=== PATIENT | male | born 1970 | race Caucasian/White ===

== ENCOUNTER 2019-08-05 19:28 | Emergency (ER) | payer MEDICAID ==
[2019-08-05] MEDS ORDERED: DIPH/PERTUSS(ACELL)/TETANUS VAC/PF 0.5 ML SYR (>=10YO) IM ONE ×2 (19:51→22:00)
--- NOTE | 2019-08-05 19:53 | ER Document Report ---
ED Medical Screen (RME) - General Chief Complaint: Laceration Stated Complaint: LACERATION Time Seen by Provider: 08/05/19 19:44 Mode of Arrival: Ambulatory Information source: Patient Notes: 48-year-old male presented to ED for: Laceration to his right hand. It is about 2 cm long. He states he caught a tube of 2 with his hand cut and the hand. He states he does not know if there was a staple in the tibia for or if it was that he preferred septic cutting. He is alert oriented respirations regular and unlabored speaking in full sentences. He states he does smoke about 13 cigarettes a day does not drink alcohol and does not use any illicit drugs. He does have high blood pressure and it is elevated at this time. He is alert oriented respirations regular nonlabored speaking in full sentences. He will be given a tetanus shot in the triage. He states he cut this at about 2 PM today I have greeted and performed a rapid initial assessment of this patient. A comprehensive ED assessment and evaluation of the patient, analysis of test results and completion of medical decision making process will be conducted by an additional ED providers. - Related Data Allergies/Adverse Reactions: No Known Allergies Allergy (Verified 08/05/19 19:41) Home Medications: ibuprofen Physical Exam - Vital signs Vitals: Temp 98.6 F 08/05/19 19:34 Course - Vital Signs Vital signs: Temp Pulse Resp BP Pulse Ox 98.6 F 87 16 176/103 H 98 08/05/19 19:39 08/05/19 19:39 08/05/19 19:39 08/05/19 19:39 08/05/19 19:39
[2019-08-05] MEDS ORDERED: LIDOCAINE 1% INJ (10 MG/ML) 10 ML MDV INJ ONE (20:27)
--- NOTE | 2019-08-05 20:29 | ER Document Report ---
ED General - General Chief Complaint: Laceration Stated Complaint: LACERATION Time Seen by Provider: 08/05/19 19:44 Mode of Arrival: Ambulatory Notes: Patient is a 48-year-old white male with no reported past medical history presents to the emergency department with a chief complaint of laceration to the right palmar thumb that occurred around 2 PM today. The patient states that it was hit with a 2 x 4 causing a laceration. He is unsure if there was any sharp object on the 2 x 4 that caused a laceration. He states he is unsure of his last tetanus. Denies any numbness, tingling, weakness or uncontrollable ble eding. - Related Data Allergies/Adverse Reactions: No Known Allergies Allergy (Verified 08/05/19 19:41) Home Medications: ibuprofen Past Medical History - General Information source: Patient - Social History Smoking Status: Current Every Day Smoker Family History: None Patient has homicidal ideation: No - Past Medical History Cardiac Medical History: Reports: Hx Hypertension - no meds currently Past Surgical History: Reports: Hx Orthopedic Surgery - Rrotator cuff, L knee Review of Systems - Review of Systems Skin: Other - Laceration -: Yes All other systems reviewed and negative Physical Exam - Vital signs Vitals: Temp 98.6 F 08/05/19 19:34 - General General appearance: Appears well, Alert In distress: None - Respiratory Respiratory status: No respiratory distress Chest status: Nontender Breath sounds: Normal Chest palpation: Normal - Cardiovascular Rhythm: Regular Heart sounds: Normal auscultation - Extremities General upper extremity: Other - Full range of motion of the right thumb with and without resistance. Good capillary refill distal to the injury. - Neurological Neuro grossly intact: Yes Cognition: Normal Orientation: AAOx4 - Psychological Associated symptoms: Normal affect, Normal mood - Skin Skin Color: Other - 2 cm laceration horizontal in orientation to the palmar surface of the proximal right thumb. Slightly gaping but wound edges approximate. No uncontrollable bleeding, or foreign body visualized. Course - Re-evaluation Re-evalutation: 08/05/19 22:10 Patient's tetanus was updated. Laceration well approximated. Dressing was applied and the thumb was corin taped to the index finger for immobilization purposes. He will follow-up in 48 hours for wound recheck and reevaluation. Started on Keflex here. He reports copious irrigation immediately after injury and application of Betadine. Was clean appearing here. Neurovascular intact status post. Counseled him regarding the importance of outpatient follow-up and advised he return here any ER immediately with any new, persistent or worsening symptoms. He verbalized understood and agreed. - Vital Signs Vital signs: Temp Pulse Resp BP Pulse Ox 98.6 F 87 16 176/103 H 98 08/05/19 19:39 08/05/19 19:39 08/05/19 19:39 08/05/19 19:39 08/05/19 19:39 Procedures - Laceration/Wound Repair Right Thumb Time completed: 22:08 Wound length (cm): 2 Wound's Depth, Shape: Superficial, Linear Laceration pre-procedure: Sterile PPE donned, Betadine prep applied, Sterile drapes applied Anesthetic type: 1% Lidocaine Volume Anesthetic (mLs): 8 Wound explored: Clean Irrigated w/ Saline (mLs): 100 Wound Repaired With: Sutures Suture Size/Type: 4:0, Prolene Number of Sutures: 3 Layer Closure?: No Post-procedure wound care: Sterile dressing applied, Other - Fingers corin taped together Post-procedure NV exam normal: Yes Complications: No Discharge - Discharge Clinical Impression: Finger laceration Qualifiers: Encounter type: initial encounter Finger: thumb Damage to nail status: without damage Foreign body presence: without foreign body Laterality: right Qualified Code(s): S61.011A - Laceration without foreign body of right thumb without damage to nail, initial encounter Condition: Stable Disposition: HOME, SELF-CARE Instructions: Laceration Care ([facility]) Additional Instructions: Follow-up with your regular doctor in 2 to 3 days for reevaluation. Return here or any ER immediately with any new, persistent or worsening symptoms. Suture move in approximately 7 to 10 days. Prescriptions: Cephalexin Monohydrate [Keflex 500 mg Capsule] 500 mg PO BID 10 Days #20 capsule
[2019-08-05] MEDS ORDERED: LIDOCAINE 1% INJ-PF (10 MG/ML) 30 ML SDV INJ ONE (21:17)
[2019-08-05] MEDS ORDERED: CEPHALEXIN 500 MG CAPSULE PO ONE (22:11)
[2019-08-05 22:26] VITALS: BP 170/98
== END 2019-08-05 22:30 | disposition home or self-care (01) ==
LOC: ER 19:28
DX: S61.011A Laceration without foreign body of right thumb without damage to nail, initial encounter (principal); W22.8XXA Striking against or struck by other objects, initial encounter; Z23 Encounter for immunization; F17.210 Nicotine dependence, cigarettes, uncomplicated; I10 Essential (primary) hypertension; Z79.1 Long term (current) use of non-steroidal anti-inflammatories (NSAID)
CPT/HCPCS: 99282; 90471; 90715; 12001; J3490

== ENCOUNTER 2020-01-22 13:38 | Emergency (ER) | payer MEDICAID ==
[2020-01-22 14:57] VITALS: BP 180/107
[2020-01-22] MEDS ORDERED: KETOROLAC TROMETHAMINE 60 MG/2 ML SDV IM ONE (15:58)
--- NOTE | 2020-01-22 16:02 | ER Document Report ---
ED General - General Chief Complaint: Knee Pain Stated Complaint: RIGHT KNEE PAIN Time Seen by Provider: 01/22/20 15:54 Notes: Patient presents to the ER for evaluation of right medial knee pain that began approximately 1 week ago when he was getting out of the floor. He denies weakness or numbness. He is amatory but states it caused increased pain in the knee. He denies posterior calf pain. He denies posterior thigh pain. He denies shortness of breath. The patient states he does have a history of hypertension but is not currently medicated. No other injuries noted. Nursing notes reviewed and past medical, social, and family histories reviewed and validated. - Related Data Allergies/Adverse Reactions: No Known Allergies Allergy (Verified 01/22/20 15:52) Past Medical History - General Information source: Patient - Social History Smoking Status: Current Some Day Smoker Cigarette use (# per day): Yes - 10 Chew tobacco use (# tins/day): No Smoking Education Provided: Yes Frequency of alcohol use: Occasional Drug Abuse: None Lives with: Alone Family History: Reviewed & Not Pertinent - Past Medical History Cardiac Medical History: Reports: Hx Hypertension - no meds currently Pulmonary Medical History: Reports: None EENT Medical History: Reports: None Neurological Medical History: Reports: None Endocrine Medical History: Reports: None Renal/ Medical History: Reports: None Malignancy Medical History: Reports None GI Medical History: Reports: None Musculoskeletal Medical History: Reports None Skin Medical History: Reports None Psychiatric Medical History: Reports: None Traumatic Medical History: Reports: None Infectious Medical History: Reports: None Past Surgical History: Reports: Hx Orthopedic Surgery - Rrotator cuff, L knee - Immunizations Immunizations up to date: Yes Review of Systems - Review of Systems Notes: Constitutional: Negative for fever. HENT: Negative for sore throat. Eyes: Negative for visual changes. Cardiovascular: Negative for chest pain. Respiratory: Negative for shortness of breath. Gastrointestinal: Negative for abdominal pain, vomiting or diarrhea. Genitourinary: Negative for dysuria. Musculoskeletal: Positive for right knee pain. Skin: Negative for rash. Neurological: Negative for headaches, weakness or numbness. 10 point ROS negative except as marked above and in HPI. Physical Exam - Vital signs Vitals: Temp Pulse Resp BP Pulse Ox 98.1 F 84 16 180/107 H 100 01/22/20 14:57 01/22/20 14:57 01/22/20 14:57 01/22/20 14:57 01/22/20 14:57 - Notes Notes: CONSTITUTIONAL: Well appearing in no acute distress SKIN: Warm, dry, and intact without rash EYES: Extraocular movements are grossly intact, clear conjunctiva HENT: Normocephalic, atraumatic, moist mucus membranes NECK: No obvious swelling, normal range of motion PULMONARY: Normal chest rise and fall, no respiratory distress or stridor CARDIOVASCULAR: Regular rate, distal extremities are warm and well perfused NEUROLOGIC: Normal speech, moves all extremities MUSCULOSKELETAL: There is tenderness palpation of the medial aspect of the right knee. There is good range of motion. Good strength versus resistance in the right extremity. No obvious erythema or swelling/induration noted. PSYCHIATRIC: Normal mood and affect Course - Re-evaluation Re-evalutation: 01/22/20 17:24 Rechecked patient. Discussed with patient: results, diagnosis, treatment plan, and need for follow-up. Patient was advised to obtain primary care to begin controlling his hypertension again. Return to the emergency department warnings were given. All questions and concerns were addressed. The plan is agreed with and understood. Patient is stable and ready for discharge. - Vital Signs Vital signs: Temp Pulse Resp BP Pulse Ox 98.1 F 84 16 180/107 H 100 01/22/20 14:57 01/22/20 14:57 01/22/20 14:57 01/22/20 14:57 01/22/20 14:57 - Diagnostic Test Radiology reviewed: Reports reviewed Procedures - Immobilization Right Knee Time completed: 17:27 Pre-Proc Neuro Vasc Exam: Normal Immobilizer type: Bashir wrap Performed by: RN Post-Proc Neuro Vasc Exam: Normal Discharge - Discharge Clinical Impression: Right knee sprain Qualifiers: Encounter type: initial encounter Involved ligament of knee: unspecified ligament Qualified Code(s): S83.91XA - Sprain of unspecified site of right knee, initial encounter Hypertension Qualifiers: Hypertension type: essential hypertension Qualified Code(s): I10 - Essential (primary) hypertension Disposition: HOME, SELF-CARE Instructions: Sprained Knee ([facility]) Prescriptions: Ketorolac Tromethamine [Toradol 10 mg Tablet] 10 mg PO Q8HP PRN #12 tablet PRN Reason: For Pain
--- NOTE | 2020-01-22 16:51 | RADIOLOGY REPORT (SQ) ---
EXAM DESCRIPTION: KNEE RIGHT 4 VIEWS IMAGES COMPLETED DATE/TIME: 01/22/2020 4:42 pm REASON FOR STUDY: pain with ambulating COMPARISON: None. NUMBER OF VIEWS: Four views. TECHNIQUE: AP, lateral, and both oblique radiographic images acquired of the right knee. LIMITATIONS: None. FINDINGS: MINERALIZATION: Normal. BONES: No acute fracture or dislocation. No worrisome bone lesions. JOINT: No effusion. SOFT TISSUES: No soft tissue swelling. No radio-opaque foreign body. OTHER: No other significant finding. IMPRESSION: 1. No acute osseous findings. TECHNICAL DOCUMENTATION: JOB ID: [id number] [employer]- All Rights Reserved Reading location - IP/workstation name: [email or web address]
== END 2020-01-22 18:09 | disposition home or self-care (01) ==
LOC: ER 13:38
DX: S83.91XA Sprain of unspecified site of right knee, initial encounter (principal); M25.561 Pain in right knee; I10 Essential (primary) hypertension; X58.XXXA Exposure to other specified factors, initial encounter; F17.210 Nicotine dependence, cigarettes, uncomplicated
CPT/HCPCS: 99284; 96372; 73564; J1885